=== PATIENT | male | born 1990 | race Hispanic/Latino ===

== ENCOUNTER 2016-09-17 19:37 | Emergency (ER) | payer BC ==
[2016-09-17 19:47] VITALS: BP 147/88; RESP 16; TEMP 97.5
--- NOTE | 2016-09-17 19:57 | ED PDOC ---
Upper Extremity Pain/Injury Time Seen by Provider: 09/17/16 19:47 Chief Complaint (Nursing): Upper Extremity Problem/Injury Chief Complaint (Provider): Right upper arm pain History Per: Patient History/Exam Limitations: no limitations Onset/Duration Of Symptoms: Mins (45 minutes prior to arrival) Current Symptoms Are (Timing): Still Present Severity: Moderate Pain Scale Rating Of: 8 Additional Complaint(s): Ranjit Lyle is a 26-year-old male who presents to the emergency department complaining of right shoulder and upper arm pain secondary to sustaining a fall , onset 45 minutes prior to arrival. Patient states he tried to catch his fall with his right arm, after tripping over a curb. He describes the pain as significant, an 8 out of 10. When moving the arm, he experiences shooting pain down towards his fingertips. Patient reports having an allergy to Sulfa drugs. PMD: None reported Past Medical History Reviewed: Historical Data, Nursing Documentation, Vital Signs Vital Signs: Last Vital Signs Temp 97.5 F L 09/17/16 19:43 Pulse 104 H 09/17/16 19:43 Resp 16 09/17/16 19:43 BP 147/88 09/17/16 19:43 Pulse Ox 100 09/17/16 19:43 - Medical History PMH: No Chronic Diseases - Surgical History Surgical History: No Surg Hx - Family History Family History: States: Unknown Family Hx - Home Medications Home Medications: Ambulatory Orders Medication Instructions Recorded Ciprofloxacin/Ciprofloxa HCl 500 mg PO BID #14 tab 04/29/15 [Ciprofloxacin] Metronidazole [Flagyl] 500 mg PO TID #21 tab 04/29/15 Ondansetron [Zofran Odt] 4 mg PO ASDIR PRN #20 odt 04/29/15 oxyCODONE/Acetaminophen [Percocet 1 ea PO Q6H PRN #10 tab 09/17/16 5/325 mg Tab] - Allergies Allergies/Adverse Reactions: Allergies Allergy/AdvReac Type Severity Reaction Status Date / Time Sulfa (Sulfonamide Allergy RASH Verified 09/17/16 19:42 Antibiotics) Review of Systems ROS Statement: Except As Marked, All Systems Reviewed And Found Negative Musculoskeletal: Positive for: Arm Pain (Right upper arm pain) Physical Exam - Reviewed Nursing Documentation Reviewed: Yes Vital Signs Reviewed: Yes - Physical Exam Appears: Positive for: Well, Non-toxic, No Acute Distress Head Exam: Positive for: ATRAUMATIC, NORMAL INSPECTION, NORMOCEPHALIC Skin: Positive for: Normal Color, Warm, Dry Eye Exam: Positive for: EOMI, Normal appearance, PERRL Neck: Positive for: Normal, Painless ROM, Supple Neurologic/Psych: Positive for: Alert, Oriented - ECG O2 Sat by Pulse Oximetry: 100 (RA) Pulse Ox Interpretation: Normal Medical Decision Making Medical Decision Making: Time: 20:06 Impression: Right arm injury Plan: --Ibuprofen 600 mg PO --Pending X-Ray: Right Humerus (RAD) and Right Shoulder (RAD) Impression: Acromioclavicular joint injury Upon provider evaluation patient is medically stable, and requires no further treatment in the ED at this time. Patient will be discharged home with Rx for Acetaminophen PRN for pain. Counseling was provided and all questions were answered regarding diagnosis and need for follow up with orthopedist. There is agreement to discharge plan. Return if symptoms persist or worsen. Scribe Attestation: Documented by Alisa Rai, acting as a scribe for Reena Parisi PA-C Provider Scribe Attestation: All medical record entries made by the Scribe were at my direction and personally dictated by me. I have reviewed the chart and agree that the record accurately reflects my personal performance of the history, physical exam, medical decision making, and the department course for this patient. I have also personally directed, reviewed, and agree with the discharge instructions and disposition. Disposition - Clinical Impression Clinical Impression: Acromioclavicular joint injury - Patient ED Disposition Is Patient to be Admitted: No - Disposition Referrals: Uriel Marroquin MD [Staff Provider] - Disposition: Routine/Home Disposition Time: 21:24 Condition: STABLE Prescriptions: oxyCODONE/Acetaminophen [Percocet 5/325 mg Tab] 1 ea PO Q6H PRN #10 tab PRN Reason: Pain, Severe (8-10) Instructions: Arthralgia (ED)
[2016-09-17 21:32] VITALS: PULSE 88
[2016-09-17 21:33] VITALS: O2SAT 100
--- NOTE | 2016-09-18 13:05 | RAD ---
PROCEDURE: Radiographs of the Right Shoulder HISTORY: Pain s/p FOOSH COMPARISON: No prior. FINDINGS: BONES: Bone alignment and mineralization are normal. No fracture. JOINTS: Normal. Glenohumeral and acromioclavicular joints preserved. No osteoarthritis. SOFT TISSUES: Normal. OTHER FINDINGS: None. IMPRESSION: No acute fracture or dislocation.
--- NOTE | 2016-09-18 13:07 | RAD ---
PROCEDURE: Radiographs of the right humerus. HISTORY: Proximal pain s/o FOOSH COMPARISON: None. FINDINGS: BONES: Bone alignment and mineralization are normal. No fracture or focal lesion. SOFT TISSUES: Normal. OTHER FINDINGS: None. IMPRESSION: No acute fracture.
== END 2016-09-17 21:20 | disposition home or self-care (01) ==
LOC: H.ER 19:37
DX: S49.91XA Unspecified injury of right shoulder and upper arm, initial encounter (principal)